=== PATIENT | female | born 2000 | race African-American/Black ===

== ENCOUNTER 2023-07-09 16:03 | Emergency (ER) | payer OTHER ==
[2023-07-09 16:12] VITALS: BP 119/70; PULSE 74; RESP 16; TEMP 98.3; BMI 23.3
[2023-07-09] MEDS ORDERED: KETOROLAC TROMETHAMINE 30 MG/1 ML VIAL IM ONE (16:59)
[2023-07-09] MEDS ORDERED: METHOCARBAMOL 750 MG TABLET PO ONE (16:59)
[2023-07-09] MEDS ORDERED: ACETAMINOPHEN 500 MG TABLET (FP) PO ONE (16:59)
[2023-07-09] MEDS ORDERED: ACETAMINOPHEN 500 MG TABLET (FP) ONE (17:16)
[2023-07-09] MEDS ORDERED: METHOCARBAMOL 500 MG TABLET ONE (17:16)
[2023-07-09] MEDS ORDERED: KETOROLAC TROMETHAMINE 30 MG/1 ML VIAL ONE (17:16)
== END 2023-07-09 18:38 | disposition home or self-care (01) ==
LOC: JERFT 16:03
PROC: 3E0233Z Introduction of Anti-inflammatory into Muscle, Percutaneous Approach (ICD-10-PCS; principal; 2023-07-09)
DX: M54.41 Lumbago with sciatica, right side (principal); R20.2 Paresthesia of skin
CPT/HCPCS: 72100-TC-FY; 99284-25